=== PATIENT | male | born 1935 ===

== ENCOUNTER 2020-01-28 16:11 | Inpatient (IN) ==
[2020-01-28 17:21] LABS: ABS Basophils 0.1 10^3/ul (0-0.2); ABS Lymphocytes 0.4 10^3/ul (1.0-4.8); ABS Neutrophils 15.2 10^3/ul (1.5-7.7); Eosinophil % 0.1 %; Hematocrit 32 % (42-52); Hemoglobin 10.6 g/dL (14.0-18.0); Lymphocyte % 2.5 %; Mean Corpuscular HGB Conc 33 g/dL (31-36); Mean Corpuscular Hemoglobin 31 pg (27-31); Mean Corpuscular Volume 94 fL (80-94); Mean Platelet Volume 8.2 fL (7.4-10.4); Platelet Count 302 10^3/uL (150-450); Red Cell Distribution Width 17 % (10-15); White Blood Count 16.7 10^3/uL (3.5-10.8)
[2020-01-28 17:41] LABS: ALT 17 U/L (7-52); AST 15 U/L (13-39); Albumin 2.5 g/dL (3.2-5.2); Albumin/Globulin Ratio 0.7 (1-3); Alkaline Phosphatase 121 U/L (34-104); Anion Gap 5 mmol/L (2-11); BUN/Creatinine Ratio 20.4 (8-20); Blood Urea Nitrogen 19 mg/dL (6-24); CO2 Carbon Dioxide 30 mmol/L (22-32); Calcium 8.4 mg/dL (8.6-10.3); Chloride 104 mmol/L (101-111); EGFR African American 93.4 (>60); EGFR Non-African American 77.2 (>60); Globulin 3.5 g/dL (2-4); Glucose 122 mg/dL (70-100); Potassium 3.4 mmol/L (3.5-5.0); Sodium 139 mmol/L (135-145)
[2020-01-28 18:00] LABS: INR >10.00 (0.82-1.09)
[2020-01-28] MEDS ORDERED: Phytonadione Oral Solution 5 MG/25 ML UDC PO ONE (18:07)
[2020-01-28] MEDS ORDERED: guaiFENesin 100 mg/5 ml LIQ unit dose cup PO PRN (20:52)
[2020-01-28 21:09] LABS: Troponin I 0.06 ng/mL (<0.03)
[2020-01-28] MEDS ORDERED: Iohexol 350 (CONTRAST) 500 ML MDV IV ONE (21:19)
[2020-01-28 21:27] LABS: Urine Appearance Cloudy; Urine Bilirubin Negative (Negative); Urine Blood Negative (Negative); Urine Color Yellow; Urine Glucose Negative (Negative); Urine Ketones Negative (Negative); Urine Nitrite Negative (Negative); Urine Protein Negative (Negative); Urine Specific Gravity 1.016 (1.010-1.030); Urine Urobilinogen Negative (Negative)
[2020-01-28 22:08] LABS: Magnesium 1.9 mg/dL (1.9-2.7)
[2020-01-28] MEDS ORDERED: Potassium Chlor 20 meq TAB.ER PO ONE (22:47)
[2020-01-28 22:58] LABS: C Reactive Protein 225.05 mg/L (<8.01)
[2020-01-28 23:00] LABS: % Iron Saturation 18 % (15-55); Iron 23 ug/dL (50-212); Total Iron Binding Capacity 130 mcg/dL (250-450); Transferrin 93 mg/dL (203-362); Unsaturated Iron Binding < 115 ug/dL
[2020-01-28 23:23] LABS: Ferritin 1270.5 ng/mL (24-336)
[2020-01-28 23:28] LABS: Vitamin B12 928 pg/mL (180-914)
[2020-01-29 00:12] LABS: Troponin I 0.04 ng/mL (<0.03)
[2020-01-29 00:26] LABS: TSH Ultra Thyroid Stim Horm 0.29 mcIU/mL (0.34-5.60)
[2020-01-29 00:28] LABS: Free T4 1.71 ng/dL (0.61-1.12)
[2020-01-29 00:33] LABS: Total T3 45 ng/dL (87-178)
[2020-01-29] MEDS: Senna TAB 8.6 mg TAB PO PRN (00:43)
[2020-01-29] MEDS: cefTRIAXone 1 gm/50 mL NS BAG 1 GM/50 ML BAG IVPB SCH ×2 (00:43→22:50)
[2020-01-29] MEDS: Magnesium Hydroxide LIQ 30 ML UDC PO PRN (00:43)
[2020-01-29 03:24] LABS: ABS Lymphocytes 0.7 10^3/ul (1.0-4.8); ABS Neutrophils 12.5 10^3/ul (1.5-7.7); Eosinophil % 0.2 %; Hematocrit 30 % (42-52); Hemoglobin 9.8 g/dL (14.0-18.0); Lymphocyte % 5.2 %; Mean Corpuscular HGB Conc 33 g/dL (31-36); Mean Corpuscular Hemoglobin 31 pg (27-31); Mean Corpuscular Volume 94 fL (80-94); Mean Platelet Volume 8.3 fL (7.4-10.4); Platelet Count 270 10^3/uL (150-450); Red Blood Count 3.19 10^6 /uL (4.18-5.48); Red Cell Distribution Width 18 % (10-15); White Blood Count 14.3 10^3/uL (3.5-10.8)
[2020-01-29 03:40] LABS: Anion Gap 6 mmol/L (2-11); BUN/Creatinine Ratio 23.3 (8-20); Blood Urea Nitrogen 17 mg/dL (6-24); CO2 Carbon Dioxide 29 mmol/L (22-32); Calcium 8.1 mg/dL (8.6-10.3); Chloride 105 mmol/L (101-111); EGFR African American 123.6 (>60); EGFR Non-African American 102.1 (>60); Glucose 105 mg/dL (70-100); Potassium 3.2 mmol/L (3.5-5.0); Sodium 140 mmol/L (135-145)
[2020-01-29 04:07] LABS: INR 9.37 (0.82-1.09)
[2020-01-29] MEDS ORDERED: Phytonadione Oral Solution 5 MG/25 ML UDC PO ONE (04:10)
[2020-01-29 06:07] LABS: Magnesium 1.9 mg/dL (1.9-2.7)
[2020-01-29] MEDS ORDERED: Potassium Chloride LIQUID 20 MEQ/15 ML LIQUID PO ONE (06:30)
[2020-01-29 07:38] LABS: Troponin I 0.04 ng/mL (<0.03)
[2020-01-29] MEDS: Aspirin EC 81 mg TAB.EC (enteric coated) PO SCH (09:11)
[2020-01-29] MEDS: DULoxetine DR 20 mg CAP PO SCH (09:11)
[2020-01-29 09:30] LABS: Troponin I 0.07 ng/mL (<0.03)
[2020-01-29] MEDS ORDERED: NS 0.9% 500 ml BAG 500 ML IV ONE (14:25)
[2020-01-30 06:12] LABS: ABS Basophils 0.1 10^3/ul (0-0.2); ABS Lymphocytes 0.6 10^3/ul (1.0-4.8); ABS Neutrophils 12.4 10^3/ul (1.5-7.7); Eosinophil % 0.3 %; Hematocrit 28 % (42-52); Hemoglobin 9.2 g/dL (14.0-18.0); Lymphocyte % 4.5 %; Mean Corpuscular HGB Conc 33 g/dL (31-36); Mean Corpuscular Hemoglobin 31 pg (27-31); Mean Corpuscular Volume 95 fL (80-94); Mean Platelet Volume 8.5 fL (7.4-10.4); Platelet Count 265 10^3/uL (150-450); Red Blood Count 2.95 10^6 /uL (4.18-5.48); Red Cell Distribution Width 18 % (10-15); White Blood Count 14.2 10^3/uL (3.5-10.8)
[2020-01-30 06:38] LABS: BUN/Creatinine Ratio 21.1 (8-20); Calcium 8.3 mg/dL (8.6-10.3); EGFR African American 127.6 (>60); EGFR Non-African American 105.4 (>60); Potassium 3.5 mmol/L (3.5-5.0)
[2020-01-30 06:44] LABS: INR 4.72 (0.82-1.09)
[2020-01-30] MEDS: Magnesium Hydroxide LIQ 30 ML UDC PO PRN (09:57)
[2020-01-30] MEDS: Senna TAB 8.6 mg TAB PO PRN (10:00)
[2020-01-30] MEDS: Aspirin EC 81 mg TAB.EC (enteric coated) PO SCH (10:00)
[2020-01-30] MEDS: DULoxetine DR 20 mg CAP PO SCH (10:00)
[2020-01-30] MEDS: cefTRIAXone 1 gm/50 mL NS BAG 1 GM/50 ML BAG IVPB SCH (23:48)
[2020-01-31 06:32] LABS: ABS Basophils 0.1 10^3/ul (0-0.2); ABS Eosinophils 0.1 10^3/ul (0-0.6); ABS Lymphocytes 0.8 10^3/ul (1.0-4.8); ABS Monocytes 0.9 10^3/ul (0-0.8); ABS Neutrophils 11.9 10^3/ul (1.5-7.7); Eosinophil % 0.5 %; Hematocrit 28 % (42-52); Lymphocyte % 5.9 %; Mean Corpuscular HGB Conc 33 g/dL (31-36); Mean Corpuscular Hemoglobin 31 pg (27-31); Mean Corpuscular Volume 94 fL (80-94); Mean Platelet Volume 8.6 fL (7.4-10.4); Platelet Count 243 10^3/uL (150-450); Red Blood Count 2.94 10^6 /uL (4.18-5.48); Red Cell Distribution Width 17 % (10-15); White Blood Count 13.8 10^3/uL (3.5-10.8)
[2020-01-31 06:43] LABS: INR 4.03 (0.82-1.09)
[2020-01-31 06:47] LABS: BUN/Creatinine Ratio 21.4 (8-20); Calcium 8.3 mg/dL (8.6-10.3); EGFR African American 129.7 (>60); EGFR Non-African American 107.2 (>60); Potassium 3.6 mmol/L (3.5-5.0)
[2020-01-31] MEDS: Aspirin EC 81 mg TAB.EC (enteric coated) PO SCH (08:25)
[2020-01-31] MEDS: DULoxetine DR 20 mg CAP PO SCH (08:43)
[2020-01-31 13:37] VITALS: BP 100/36
== END 2020-01-31 13:23 | disposition home or self-care (01) | DRG 194 ==
LOC: ED 16:11 → MEDTELE 16:11 → OBSVTOIN 20:20 → MEDTELE 23:14
PROVIDERS: ADMIT Internal Medicine; ATTEND Internal Medicine